=== PATIENT | male | born 2000 | race Caucasian/White ===

== ENCOUNTER 2024-02-08 06:06 | Emergency (ER) | payer OTHER ==
[~2024-02-08] VITALS: Ht 180.3 cm; Wt 68.0 kg
[2024-02-08 06:15] VITALS: BP 138/74; PULSE 88; RESP 18; TEMP 97.4; O2SAT 97
[2024-02-08 06:20] VITALS: BP 138/74; PULSE 88; RESP 18; TEMP 97.4
[2024-02-08 06:25] VITALS: O2SAT 97
== END 2024-02-08 06:39 ==
LOC: MED 06:06
DX: S50.811A Abrasion of right forearm, initial encounter (principal); V49.88XA Car occupant (driver) (passenger) injured in other specified transport accidents, initial encounter; Y93.89 Activity, other specified; Y92.89 Other specified places as the place of occurrence of the external cause; Y99.8 Other external cause status
CPT/HCPCS: 99283